=== PATIENT | male | born 1965 | race Caucasian/White ===

== ENCOUNTER 2023-03-13 19:53 | Emergency (ER) | payer OTHER, SELFPAY ==
[2023-03-13 19:56] VITALS: BP 132/81; PULSE 104; RESP 18; TEMP 37; O2SAT 94; BMI 41.8
--- NOTE | 2023-03-13 20:44 | CRLHL7_ITS ---
For Patients: As a result of the Cures Act, medical imaging exams and procedure reports are released immediately into your electronic medical record. You may view this report before your referring provider. If you have questions, please contact your health care provider. INDICATION: Cough, fever TECHNIQUE: Chest radiograph 2 views COMPARISON: None FINDINGS: The sensitivity and specificity of the exam are moderately limited by the patient`s body habitus. Mediastinum: The mediastinum is normal in appearance. The heart silhouette is normal in size and morphology. Lung: Both lungs are unremarkable in appearance. No sign of pleural effusion seen. No pneumothorax is identified. Bone and Soft tissue: Unremarkable for age. IMPRESSION: 1. No acute cardiopulmonary disease is seen. Dictated by: Edwin Duong MD @ 03/13/2023 21:25:36 (Electronically Signed)
--- NOTE | 2023-03-13 20:54 | ED.GENADULT ---
HPI - General Adult General Chief complaint: Cough Stated complaint: Cold flu like symptoms Time Seen by Provider: 03/13/23 20:21 History of Present Illness HPI narrative: This 57-year-old male comes in reporting cough and congestion with fever that began 8 days ago. He states that he had fevers every day for fiber 6 days but has not noticed fever over the last couple days. He does arrive with normal vital signs except for a pulse that is increased a bit at 104 beats per minute. He does not report any shortness of breath. He states that he has a productive cough at times more recently. He did test for COVID at home twice with negative results. He attempted to get in to clinic and urgent care but was unable to because they were either closed or not taking patients. [place] and has plans to go back in 5 days. Related Data Home Medications Medication Instructions Recorded Confirmed Lantus U-100 Insulin 03/13/23 amlodipine-benazepril 03/13/23 aspirin 81 mg capsule 81 mg PO DAILY 03/13/23 03/13/23 chlorthalidone 25 mg tablet 25 mg PO DAILY 03/13/23 03/13/23 empagliflozin 25 mg tablet 25 mg PO DAILY 03/13/23 03/13/23 insulin aspart U-100 .ROUTE 03/13/23 omeprazole 20 mg capsule,delayed 20 mg PO DAILY 03/13/23 03/13/23 release Allergies Allergy/AdvReac Type Severity Reaction Status Date / Time No Known Drug Allergies Allergy Verified 03/13/23 20:03 Review of Systems Status of ROS: Reports: 10 or more systems reviewed and unremarkable except as noted in History and below Narrative: Constitutional: No fevers, no weight gain or loss. Eyes: No discharge. No vision changes. HENT: No congestion, no sore throat, no ear pain. Cardiovascular: No chest pain. No palpitations. Respiratory: No shortness of breath, no wheezes. Productive cough. Gastrointestinal: No abdominal pain, no vomiting, no diarrhea. Genitourinary: No dysuria, no hematuria. Musculoskeletal: Normal range of motion. Skin: No rashes, no pruritis. Neurological: No dizziness, weakness, sensory change, speech change. Endo/Heme/Allergies: No bruising or bleeding. No polydipsia. Pysch: no suicidality, no anxiety, no insomnia. All other systems reviewed and are negative. Exam Narrative: Exam Narrative: Constitutional: Well-developed, well-nourished, no acute distress. HEENT: Normocephalic, atraumatic. Neck: Normal range of motion. Nontender. Supple. Heart: Regular. No murmurs. Normal rate. Intact distal pulses. Lungs: Clear to auscultation. No chest discomfort. No wheezes, rhonchi, or rales. Abdomen: Normal bowel sounds. Nontender. No rebound tenderness. Genitalia: Deferred. Back: No midline tenderness. Normal range of motion. Extremities: Normal range of motion. No injury. Skin: Intact. No rash. Warm. No erythema or pallor. Neurologic: No altered sensation. No weakness. Alert and oriented. Psychiatric: No suicidality. No anxiety or depression. No insomnia. Nursing notes and vitals signs are reviewed. Const: Vital Signs, click to edit/add: Vital Signs - 24 hr 03/13/23 19:56 Temperature 98.6 F Pulse Rate [Pulse Oximeter] 104 H Respiratory Rate 18 Blood Pressure [Ri ght Upper Arm] 132/81 Pulse Oximetry 94 Oxygen Delivery Me thod Room Air Course Vital Signs Vital signs: Initial Vital Signs Temperature 98.6 F 03/13/23 19:56 Temperature Source Temporal Artery Scan 03/13/23 19:56 Pulse Rate 104 H 03/13/23 19:56 Respiratory Rate 18 03/13/23 19:56 Blood Pressure 132/81 03/13/23 19:56 Blood Pressure Mean 98 03/13/23 19:56 Blood Pressure Position Supine 03/13/23 19:56 Pulse Oximetry 94 03/13/23 19:56 Oxygen Delivery Method Room Air 03/13/23 19:56 Vital Signs Temperature 98.6 F 03/13/23 19:56 Pulse Rate 104 H 03/13/23 19:56 Respiratory Rate 18 03/13/23 19:56 Blood Pressure 132/81 03/13/23 19:56 Pulse Oximetry 94 03/13/23 19:56 Oxygen Delivery Method Room Air 03/13/23 19:56 Temperature 98.6 F 03/13/23 19:56 Pulse Rate 104 H 03/13/23 19:56 Respiratory Rate 18 03/13/23 19:56 Blood Pressure 132/81 03/13/23 19:56 Pulse Oximetry 94 03/13/23 19:56 Oxygen Delivery Method Room Air 03/13/23 19:56 Medical Decision Making MDM Narrative Medical decision making narrative: This patient comes in with cough and fever that started about 8 days ago. He has normal vital signs except his heart rate is a bit increased. He is not showing signs of respiratory distress. Chest x-ray shows no sign of infiltrate or acute pulmonary disease. The patient is planning to travel back to [place] in a few days where he resides. His symptoms could very well be from a viral infection. Given the extended duration and the recurrent fevers over almost a week his symptoms I did then give a prescription for Zithromax. He also received a prescription for some tablets of Tylenol 3 for cough suppressant benefit. Imaging Data Chest x-ray: Radiologist's impression: No acute cardiopulmonary disease is seen. Discharge Plan Discharge Clinical Impression: Acute lower respiratory infection Patient Disposition: Home, Self-Care Condition: Stable Additional Instructions: Take medication as prescribed. Follow up with MD or return if worsening. Prescriptions: No Action amlodipine-benazepril empagliflozin 25 mg tablet 25 mg PO DAILY omeprazole 20 mg capsule,delayed release(DR/EC) 20 mg PO DAILY aspirin 81 mg capsule 81 mg PO DAILY insulin aspart U-100 [Novolog FlexPen U-100 Insulin] .ROUTE Lantus U-100 Insulin chlorthalidone 25 mg tablet 25 mg PO DAILY Follow Up/Referrals: Provider,Not a Local [Primary Care Provider] - Stand Alone Forms: [facility] Info Instructions
[2023-03-13 21:50] VITALS: BP 128/62; PULSE 98; RESP 20; O2SAT 97
== END 2023-03-13 21:55 | disposition home or self-care (01) ==
PROVIDERS: Emergency Provider Emergency Medicine Emergency Medical Services
DX: J22 Unspecified acute lower respiratory infection (principal)
CPT/HCPCS: 71046; 99283; 99284